=== PATIENT | male | born 1995 | race Asian ===

== ENCOUNTER → 2016-10-27 19:56 | Emergency (ER) | payer OTHER ==
[~2016-10-27 19:56] MED LIST: Midazolam* 1 MG/ML 5 ML VIAL (5 MG) SLOW PUSH ONE; Morphine INJ* 4 MG/ML 1 ML SYRINGE IV ONE; NS 0.9% 1000 ML* 1,000 ML IV ONE; Ondansetron INJ* 2 MG/ML VIAL IV ONE; fentaNYL* 50 MCG/ML 2 ML VIAL (100 MCG VIAL) IV SLOW PU ONE
--- NOTE | 2016-10-27 21:21 | RAD ---
INDICATION: Shoulder dislocation playing squash COMPARISON: None. TECHNIQUE: 4 views of the right shoulder were obtained. FINDINGS: The humeral head is dislocated inferiorly and anteriorly relative to the bony glenoid labrum. No visible fracture is identified. Remaining visualized bones are normal. IMPRESSION: DISLOCATED RIGHT SHOULDER WITHOUT RADIOGRAPHICALLY APPARENT BONY FRACTURE.
[2016-10-27 23:42] VITALS: BP 111/89
--- NOTE | 2016-10-28 07:47 | RAD ---
HISTORY: Post reduction COMPARISONS: October 27, 2016 at 9:02 PM VIEWS: 1, single frontal view of the right shoulder in internal rotation FINDINGS: BONE DENSITY: Normal. BONES: There is no displaced fracture. JOINTS: There is no arthropathy. ALIGNMENT: There is been interval reduction of the dislocation on this single projection SOFT TISSUES: Unremarkable. OTHER FINDINGS: None. IMPRESSION: LIMITED SINGLE PROJECTION OF THE RIGHT SHOULDER DEMONSTRATE INTERVAL REDUCTION OF THE RIGHT SHOULDER DISLOCATION
--- NOTE | 2016-10-31 10:24 | ED ---
David Figueredo Thomas, scribed for Renzo Shanks MD on 10/27/16 at 2144 . Upper Extremity Pain - HPI Summary HPI Summary: The pt is a 21 y/o M presenting to the ED c/o R shoulder pain. He was playing squash today when he was reaching for a ball, injuring himself. He says it feels like he dislocated his shoulder. The pt has previously had a dislocated R shoulder. When his shoulder was reduced previously, the pt claims that his shoulder was reduced when he was still awake after he was given two shots. At this time, the pt denies any tingling, numbness, and lack of sensation. The pt does not take any medications and claims he is healthy. He is from [facility]. He last ate at 14:00 and drank at 12:00. - History of Current Complaint Chief Complaint: EDShouldMasonj Stated Complaint: RT SHOULDER INJURY Time Seen by Provider: 10/27/16 21:38 Hx Obtained From: Patient Timing: Constant Pain Location: Shoulder Associated Signs & Symptoms: Positive: Other - POS: R shoulder pain; NEG: lack of sensation.. Negative: Numbness/Tingling - Allergies/Home Medications Allergies/Adverse Reactions: Allergies Allergy/AdvReac Type Severity Reaction Status Date / Time No Known Allergies Allergy Verified 10/27/16 20:03 PMH/Surg Hx/FS Hx/Imm Hx Previously Healthy: Yes Respiratory History: Denies: Hx Chronic Obstructive Pulmonary Disease (COPD) Opthamlomology History: Denies: Hx Legally Blind Infectious Disease History: No Infectious Disease History: Denies: Traveled Outside the [place] in Last 30 Days - Family History Known Family History: Negative: Cardiac Disease, Diabetes - Social History Alcohol Use: None Substance Use Type: Reports: None Smoking Status (MU): Never Smoked Tobacco Review of Systems Constitutional: Negative Negative: Fever, Chills Eyes: Negative Negative: Erythema - eyes ENT: Negative Negative: Sore Throat Cardiovascular: Negative Negative: Chest Pain Respiratory: Negative Negative: Shortness Of Breath Gastrointestinal: Negative Negative: Abdominal Pain, Vomiting, Nausea Genitourinary: Negative Negative: dysuria, hematuria Musculoskeletal: Other - POS: R shoulder pain ("feels like I dislocated my shoulder"), Negative: Myalgia, Edema - leg Skin: Negative Negative: Rash Neurological: Negative, Other - NEG: dizziness, tingling, numbness, loss of sensation, Psychological: Normal All Other Systems Reviewed And Are Negative: Yes Physical Exam - Summary Physical Exam Summary: Constitutional: Well-developed, Well-nourished, Alert, Cooperative Skin: Warm, Dry HENT: Normocephalic; No Racoons eyes; No battles sign; No abrasion; No contusion ; No hemotympanum; No maxilla facial tenderness or instability; Dentition are smooth; No dental trauma; No trismus Eyes: EOM normal, PERRL Neck: Trachea is midline. No stridor; No JVD; No step off; No posterior cervical spine tenderness Cardio: Good pulses. Rhythm regular, rate normal Heart sounds normal; Intact distal pulses; The pedal pulses are 2+ and symmetric. Radial pulses are 2+ and symmetric. Pulmonary/Chest wall: Effort normal; Breath sounds normal; Equal chest rise; No flail segment; No rib tenderness; No sternal tenderness Abd: Soft, Appearance normal. No distension; No tenderness; No palpable pulsatile mass; No Cullens sign; No Hassan-Turners sign Musculoskeletal: Loss of deltoid prominence on the R shoulder. Full ROM and no tenderness at hips, ankles, shoulders, elbows and knees; No joint swelling; No vertebral body tenderness; No paraspinal tenderness; No step off or deformity of the spine; Pelvis is stable to lateral compression and rock Neuro: Good sensation. Alert, Oriented x3, Strength 5/5 all extremities. : No blood at urethral meatus Psych: Mood and affect Normal Triage Information Reviewed: Yes Vital Signs On Initial Exam: Initial Vitals Temp Pulse Resp BP Pulse Ox 99.7 F 106 16 126/79 98 10/27/16 20:00 10/27/16 20:00 10/27/16 20:00 10/27/16 20:00 10/27/16 20:00 Vital Signs Reviewed: Yes - [place] Coma Scale Coma Scale Total: 15 Procedures - Joint Reduction Joint Reduction Site: shoulder (R) Conscious Sedation: Yes Reduction Attempts: 1 Pre-Procedure NV Exam: Yes - distal sensation, pulses intact Post Joint Reduction Film: joint reduced Diagnostics - Vital Signs Vital Signs Temp Pulse Resp BP Pulse Ox 10/27/16 21:14 97.6 F 88 16 126/79 100 10/27/16 20:00 99.7 F 106 16 126/79 98 - Laboratory Lab Statement: Any lab studies that have been ordered have been reviewed, and results considered in the medical decision making process. - Radiology Shoulder XR Pre-reduction Xray Interpretation: No Acute Changes - DISLOCATED RIGHT SHOULDER WITHOUT RADIOGRAPHICALLY APPARENT BONY FRACTURE. Radiology Interpretation Completed By: Radiologist Shoulder XR post-reduction Xray Interpretation: No Acute Changes - Good reduction Radiology Interpretation Completed By: ED Physician Re-Evaluation - Re-Evaluation First Eval Re-Evaluation Time: 23:04 Change: Improved - Patient feels better. He is awake and alert. Nursing applied a shoulder immbolizer. Course/Dx - Course Course Of Treatment: PROCEDURE NOTE: Procedural Sedaation. Indicated to reduce the R shoulder. The Physician is Renzo Shanks. The patient gave informed and consented to the risks, including the risk of apnea, hypotension, and allergic reaction. Cardiac and capnography monitoring were utilized. Respiratory therapy was at bedside. 3 mg of IV Versed and 50 micrograms of IV Fentanyl were used. The pt tolerated sedation well with no complications during sedation. Assessment/Plan: The pt is a 21 y/o M presenting to the ED c/o R shoulder pain. He was playing squash today when he was reaching for a ball, injuring himself. He says it feels like he dislocated his shoulder. The pt has previously had a dislocated R shoulder. When his shoulder was reduced previously, the pt claims that his shoulder was reduced when he was still awake after he was given two shots. At this time, the pt denies any tingling, numbness, and lack of sensation. The pt does not take any medications and claims he is healthy. He is from [facility]. He last ate at 14:00 and drank at 12:00. Shoulder XR pre- reduction showed DISLOCATED RIGHT SHOULDER WITHOUT RADIOGRAPHICALLY APPARENT BONY FRACTURE. Shoulder was reduced with sedation. Shoulder XR post-reduction showed good reduction. Pt was re-evaluated once, and during that he felt better. He is awake and alert. Nursing applied a shoulder immbolizer. The pt is discharged home with a diagnosis of shoulder dislocation and given education materials. He was instructed to follow up with Dr. Díaz in two days. He is agreeable to this plan, and he was instructed to return with new or worsening symptoms. - Diagnoses Provider Diagnoses: Shoulder dislocation Discharge - Discharge Plan Condition: Stable Disposition: HOME Patient Education Materials: Shoulder Dislocation (ED) Referrals: Ruchi Díaz MD [Medical Doctor] - 2 Days Additional Instructions: RETURN TO THE EMERGENCY DEPARTMENT FOR CHANGING OR WORSENING SYMPTOMS. Follow up with Dr. Díaz in two days. The documentation as recorded by the David russell Thomas accurately reflects the service I personally performed and the decisions made by , Renzo Shanks MD.
== END | disposition home or self-care (01) ==
LOC: ED 19:56
DX: S43.004A Unspecified dislocation of right shoulder joint, initial encounter (principal); X50.9XXA Other and unspecified overexertion or strenuous movements or postures, initial encounter; Y93.73 Activity, racquet and hand sports; Y92.89 Other specified places as the place of occurrence of the external cause
CPT/HCPCS: 23650; 96374; 96375; 99284; J2250; J2270; J2405; J3010